=== PATIENT | male | born 1990 | race Caucasian/White ===

== ENCOUNTER 2021-05-23 11:02 | Emergency (ER) | payer OTHER ==
[~2021-05-23] VITALS: Ht 165 cm; Wt 79.0 kg
[2021-05-23 11:15] VITALS: BP 111/75
--- NOTE | 2021-05-23 11:44 | ED Back Pain ---
General Chief Complaint: Back Problems Stated Complaint: BACK PAIN Nursing Triage Note: ARRIVED VIA AMB WITH COMPLAINTS OF LEFT LOWER BACK PAIN THAT GOES DOWN LEFT LEG X2 DAYS. IS HERE VISITING HIS MOM IN THE ICU. Source of Information: Patient Exam Limitations: No Limitations History of Present Illness Date Seen by Provider: May 23, 2021 Time Seen by Provider: 11:29 Initial Comments This 31-year-old young man presents to the emergency room with 2 to 3 days of left lower back pain that radiates into the buttock and posterior left thigh. He denies any trauma or injury. He denies any heavy labor or strenuous activity. He reports the pain is now 5/10 but is worse in the mornings when he wakes up. He denies any bowel or bladder dysfunction, groin numbness, or leg weakness. He has tried heat, ice, and Tylenol without much benefit. He has not tried NSAID medications. He has had prior episodes of lower back pain but none this intense. He has not had any imaging of his lumbar spine. Allergies and Home Medications Allergies Coded Allergies: amoxicillin (Verified Allergy, Unknown, 05/23/21) Patient Home Medication List Home Medication List Reviewed: Yes Prednisone (Prednisone) 20 Mg Tab, 40 MG PO DAILY Prescribed by: FAVIAN VALENTINE on 05/23/21 1147 Review of Systems Constitutional: no symptoms reported EENTM: no symptoms reported Respiratory: no symptoms reported Cardiovascular: no symptoms reported Gastrointestinal: no symptoms reported Musculoskeletal: see HPI Skin: no symptoms reported Psychiatric/Neurological: See HPI Past Dhqxoso-Ezxqio-Vabtuy Hx Patient Social History Tobacco Use?: No Smoking Status: Never a Smoker Substance use?: No Alcohol Use?: Yes Alcohol Frequency: Once in a while Immunizations Up To Date Second COVID19 Vaccination Deangelo: UNKNOWN DATE COVID19 Vaccine Flight Steward: JOSEPH Past Medical History Surgeries: Yes Orthopedic (Bilateral ACL, meniscus) Respiratory: No Cardiac: No Neurological: No Genitourinary: No Gastrointestinal: No Musculoskeletal: Yes Chronic Back Pain Endocrine: No HEENT: No Cancer: No Psychosocial: No Physical Exam Vital Signs Vital Signs - First Documented 05/23/21 11:15 Temp 35.2 Pulse 71 Resp 16 B/P (MAP) 111/75 (87) Capillary Refill : Less Than 3 Seconds Height, Weight, BMI Height: '" Weight: lbs. oz. kg; 29.00 BMI Method: General Appearance: No Apparent Distress, WD/WN HEENT: PERRL/EOMI, Normal ENT Inspection Neck: Normal Inspection Cardiovascular: Regular Rate, Rhythm, No Edema, No Murmur Respiratory: Lungs Clear, Normal Breath Sounds Gastrointestinal: Non Tender, Soft Back: Normal Inspection, No Vertebral Tenderness, Other (No paraspinous tenderness) Extremity: Normal Inspection, No Pedal Edema, Other (Tenderness in the left gluteal muscles near the piriformis) Neurologic/Psychiatric: Alert, Oriented x3, No Motor/Sensory Deficits, Normal Mood/Affect, herd tester II-XII Norm as Tested Skin: Normal Color, Warm/Dry Progress/Results/Core Measures Results/Orders My Orders Orders - FAVIAN SCANLON MD Ketorolac Injection (Toradol Injection) (05/23/21 11:45) Vital Signs/I&O 05/23/21 11:15 Temp 35.2 Pulse 71 Resp 16 B/P (MAP) 111/75 (87) Blood Pressure Mean: 87 Progress Progress Note : Progress Note Patient was offered a Toradol injection which he accepted. Based on history and exam, symptoms are likely related to piriformis syndrome, or less likely, lumbar radiculopathy. See discharge instructions for further discussion. Departure Impression Primary Impression: Low back pain Qualified Codes: M54.42 - Lumbago with sciatica, left side Additional Impression: Radiculopathy Qualified Codes: M54.16 - Radiculopathy, lumbar region Disposition: 01 HOME, SELF-CARE Condition: Improved Departure-Patient Inst. Decision time for Depature: 11:41 Referrals: NO,LOCAL PHYSICIAN (PCP/Family) Primary Care Physician Patient Instructions: Low Back Pain in Adults, Radiculopathy Add. Discharge Instructions: Nerve or spinal impingement in your lower back or piriformis syndrome may be responsible for your pain. You may use ibuprofen up to 600 mg every 6 hours as needed for primary control of your pain. Add Tylenol (acetaminophen) up to 1000 mg every 6 hours as needed for additional pain relief. You may use the prednisone steroid to help gradually calm down inflammation. This should help reduce your pain over the next 2 to 3 days. Take with food or milk to avoid stomach upset, and take early in the day to avoid sleep disturban ce. It may be beneficial to review some stretching exercises for piriformis syndrome and for lumbar radiculopathy. Make a follow-up appointment with your primary care provider. Call with questions or concerns. Return to the ER if you have worsening symptoms despite following these instructions, especially if you develop weakness in your legs, severe escalation of pain, numbness in your groin/genital, or difficulty controlling bowel or bladder function. All discharge instructions reviewed with patient and/or family. Voiced understanding. Scripts Prednisone (Prednisone) 20 Mg Tab 40 MG PO DAILY, #6 TAB 0 Refills Prov: FAVIAN SCANLON MD 05/23/21 FAVIAN SCANLON MD May 23, 2021 11:44
[2021-05-23] MEDS ORDERED: KETOROLAC 30 MG/ML VIAL IM ONE (11:45)
[2021-05-23] MEDS ORDERED: PRD20T PO (11:47)
== END 2021-05-23 11:51 | disposition home or self-care (01) ==
LOC: EDUNIT# 11:02 → ER 11:04
DX: M54.16 Radiculopathy, lumbar region (principal)
CPT/HCPCS: 99284